=== PATIENT | male | born 1930 | race Caucasian/White ===

== ENCOUNTER 2017-08-26 21:07 | Emergency (ER) | payer OTHER ==
[~2017-08-26] VITALS: Ht 188 cm; Wt 86.2 kg
--- NOTE | 2017-08-26 21:30 | NUR ---
Pt BIB [facility], reports pt has not been eating or drinking or taking his medications. Pt has no complaints. Pt denies CP, SOB, dizziness, n/v, no distress noted.
[2017-08-26] MEDS ORDERED: IV NORMAL SALINE 500 ML BAG IV ONE (22:00)
[2017-08-26] MEDS ORDERED: LACT1CAP74 PO (22:10)
[2017-08-26] MEDS ORDERED: METH500T4 PO (22:10)
[2017-08-26] MEDS ORDERED: METF500T4 PO (22:10)
[2017-08-26] MEDS ORDERED: WARF5TAB6 PO (22:10)
[2017-08-26] MEDS ORDERED: WARF5TAB77 PO (22:10)
[2017-08-26] MEDS ORDERED: FURO20TA90 PO (22:10)
[2017-08-26] MEDS ORDERED: METO50TA3 PO (22:10)
[2017-08-26] MEDS ORDERED: GLIP5TAB13 PO (22:10)
[2017-08-26] MEDS ORDERED: ALEN70TA3 PO (22:10)
[2017-08-26] MEDS ORDERED: HYDR-4076 PO (22:10)
[2017-08-26] MEDS ORDERED: CHOL400T PO (22:10)
[2017-08-26] MEDS ORDERED: LISI10TA5 PO (22:10)
[2017-08-26 22:44] LABS: BASOPHILS # (AUTO) 0.1 K/uL (0.0-8.0); BASOPHILS % (AUTO) 0.8 % (0.0-2.0); EOSINOPHILS # (AUTO) 0.1 K/uL (0.0-0.7); EOSINOPHILS % (AUTO) 1.1 % (0.0-7.0); HEMATOCRIT 47.1 % (40-50); HEMOGLOBIN 15.1 G/DL (14.0-18.0); LYMPHOCYTES % (AUTO) 11.6 % (20.5-51.5); MEAN CORPUSCULAR HEMOGLOBIN 28.3 UUG (27.0-31.0); MEAN CORPUSCULAR HGB CONC 32 g/dL (32.0-37.0); MEAN CORPUSCULAR VOLUME 88.3 FL (82.0-92.0); MONOCYTES % (AUTO) 12.3 % (0.0-11.0); NEUTROPHILS # (AUTO) 6.1 K/UL (1.8-8.9); NEUTROPHILS % (AUTO) 74.2 % (38.5-71.5); PLATELET COUNT (AUTO) 425 K/UL (150-450); RED BLOOD CELL COUNT(AUTO) 5.33 MIL/UL (4.7-6.1); WHITE BLOOD COUNT (AUTO) 8.3 K/UL (4.0-11.2)
[2017-08-26 23:01] LABS: ALANINE AMINOTRANSFERASE 60 U/L (16-63); ALKALINE PHOSPHATASE 106 U/L (50-136); ASPARTATE AMINOTRANSFERASE 48 U/L (15-37); BILIRUBIN,DIRECT 0.5 mg/dL (0.0-0.2); BILIRUBIN,TOTAL 2.7 mg/dL (0.2-1.0); CARBON DIOXIDE 25 mmol/L (21-32); CHLORIDE 107 mmol/L (98-107); CREATININE 1.5 mg/dL (0.6-1.3); GLUCOSE 90 mg/dL (74-106); POTASSIUM 4.4 mmol/L (3.5-5.1); TOTAL PROTEIN, SERUM 7.1 g/dL (6.4-8.2); UREA NITROGEN, BLOOD 32 mg/dL (7-18)
[2017-08-26 23:11] LABS: THYROID STIMULATING HORMONE 2.192 mIU/mL (0.358-3.740)
[2017-08-26 23:35] LABS: *BLOOD, URINE 3+ (NEGATIVE); *COLOR,URINE AMBER (YELLOW); *KETONES,URINE TRACE (NEGATIVE); LEUKOCYTE ESTERASE ,URINE 1+ (NEGATIVE); NITRITE, URINE NEGATIVE (NEGATIVE); PH,URINE 5.5 (5.0-8.0); UGLUCOSE NEGATIVE (NEGATIVE)
[2017-08-26 23:50] LABS: *BILIRUBIN,URIN 1+ (NEGATIVE); *PROTEIN,URINE 3+ (NEGATIVE)
[2017-08-26 23:51] LABS: *CLARITY,URINE HAZY (CLEAR)
[2017-08-26 23:52] LABS: BACTERIA,URINE MODERATE /HPF (NONE SEEN); RBC,URINE 80-100 /HPF (0-3); SQUAMOUS EPITHELIAL CELL,UR FEW /HPF (NONE SEEN); WBC,URINE 20-50 /HPF (0-3)
[2017-08-26 23:53] LABS: MUCUS,URINE MODERATE /LPF (0-FEW)
--- NOTE | 2017-08-27 00:20 | NUR ---
Majo with [facility] called, updated v/s given
[2017-08-27] MEDS ORDERED: CEFTRIAXONE 1 G in IV DEXTROSE 5% 50 ML IV ONE (01:30)
[2017-08-27] MEDS ORDERED: CEFTRIAXONE 1 G VIAL ONE (01:47)
--- NOTE | 2017-08-27 02:23 | NUR ---
Removed IV intact, site okay, bandaged. Gave pt RX and d/c instructions, verbalized understanding.
== END 2017-08-27 02:27 | disposition home or self-care (01) ==
LOC: ER 21:10
DX: N39.0 Urinary tract infection, site not specified (principal); I10 Essential (primary) hypertension; E11.9 Type 2 diabetes mellitus without complications; E78.00 Pure hypercholesterolemia, unspecified; Z79.01 Long term (current) use of anticoagulants; Z88.0 Allergy status to penicillin; Z90.79 Acquired absence of other genital organ(s)
CPT/HCPCS: 36415; 70030-TC; 71010; 83605; 84443; 85025; 85730; 87040; 87086; 93005; A4663; J0696; J7040; J7060